=== PATIENT | female | born 1940 | race Caucasian/White ===

== ENCOUNTER 2021-01-15 08:49 | Outpatient (CLI) | payer MEDICARE, SELFPAY ==
--- NOTE | ~2021-01-15 | US_ITS ---
EXAMINATION: US renal BI EXAM DATE: 01/15/2021 09:32 INDICATION: Stage 3 Kidney Disease. CRF TECHNIQUE: Multiple grayscale and Doppler images of the kidneys were obtained (by a technologist who performed the scan) and subsequently reviewed. There is no prior study for comparison. FINDINGS: There is bilateral renal cortical thinning. Right kidney: There is normal contour and increased echogenicity. It measures 6.6 x 4.1 x 3.9 centim eters. Anechoic lesion consistent with cyst in the superior pole measuring 2 cm. There is no hydron ephrosis. Left kidney: There is normal contour and increased echogenicity. It measures 10.0 x 4.6 x 3.3 centim eters. There are no focal renal lesions identified. There is no hydronephrosis. Bladder unremarkable. IMPRESSION: 1. Echogenic cortices, medical renal disease. 2. Moderate renal atrophy. Reviewed, dictated and finalized at location B.
== END 2021-01-15 08:50 | disposition home or self-care (01) ==
LOC: ANHIMG 08:51
PROVIDERS: PCP Internal Medicine; Visit Provider Internal Medicine Nephrology
DX: N18.32 Chronic kidney disease, stage 3b (principal)
CPT/HCPCS: 76775

== ENCOUNTER → 2021-05-19 02:18 | Outpatient (CLI) | payer MEDICARE, SELFPAY ==
[2021-05-19 11:44] LABS: Influenza A QL RT-PCR Positive (Negative); Influenza B QL RT-PCR Negative (Negative); SARS-CoV-2 RNA PCR Positive
== END ==
PROVIDERS: PCP Internal Medicine; Visit Provider Internal Medicine
DX: U07.1 COVID-19 (principal)
CPT/HCPCS: 87502; C9803; U0003; U0005

== ENCOUNTER 2022-07-12 10:36 | Inpatient (IN) | payer MEDICARE, SELFPAY ==
[2022-07-12] VITALS (21 sets, daily range): BP systolic 95–180; BP diastolic 46–165; PULSE 77–120; RESP 14–20; TEMP 36.4–36.8; O2SAT 64–100; BMI 33.2
--- NOTE | ~2022-07-12 | CT_ITS ---
EXAMINATION: CT abdomen pelvis w con DATE: 07/12/2022 13:02 INDICATION: Colovesical/colovaginal fistula TECHNIQUE: Computed tomography (CT) of the abdomen and pelvis was performed with 100 mL Omnipaque-350 intravenous contrast. Automated exposure control and iterative reconstruction technique were employe d. The dose-length product was 562.11 mGy-cm. COMPARISON: 05/11/2012 FINDINGS: Mild basilar atelectasis at the right middle lobe and lingula. Heart size is normal. Atherosclerotic coronary artery calcific location. Aortic valve and mitral annular calcification. No pericardial or p leural effusion. Mild intrahepatic biliary ductal dilation with more prominent dilation of the common bile duct which measures 1.9 cm in maximal diameter. The common bile duct dilation with chronic but has increased from 1.6 cm in maximal diameter on the prior study in 2012. No obstructing stones or ma sses identified in this likely related to prior cholecystectomy with no evident gallbladder. Unchange d small spleen with irregular contours which could be either splenosis or atrophy related to prior tr auma, infarct or infection. Pancreas and bilateral adrenal glands. Bilateral mild likely age-related renal atrophy. Bilateral renal cysts, the largest a 2.2 cm exophytic cyst at the upper pole of the ri ght kidney. Mild left hydronephrosis with no evident obstructing stone or mass at the transition poin t at the ureteropelvic junction. The uterus is not identified and has likely been surgically resected . Stool-filled colovaginal fistula extending between the sigmoid colon and the vaginal cuff across th e uterine fossa. Partially decompressed bladder appears normal with no intraluminal stool or gas or e vidence defect in the wall of the dome of the bladder which abuts the fistula. There is moderate dive rticulosis with sigmoid colon predominance and without associated inflammatory stranding to suggest d iverticulitis. Normal appendix. No bowel obstruction. No free intraperitoneal gas or fluid. No pathol ogically enlarged abdominal or pelvic lymphadenopathy. Multiple sutures along the anterior abdominal wall which could be related to prior ventral hernia repair. Severe lumbar and lower thoracic spondylo sis. IMPRESSION: 1. Stool filled colon vaginal fistula. 2. Likely left UPJ obstruction with mild left hydronephrosis. 3. Chronic intra and extrahepatic biliary ductal dilation likely related to prior cholecystectomy. 4. Moderate diverticulosis. Reviewed, dictated and finalized at location A. IMPRESSION: 1. Stool filled colon vaginal fistula. 2. Likely left UPJ obstruction with mild left hydronephrosis. 3. Chronic intra and extrahepatic biliary ductal dilation likely related to gaurav or cholecystectomy. 4. Moderate diverticulosis.
--- NOTE | ~2022-07-12 | NM_ITS ---
EXAMINATION: NM lasix renal scan DATE: 07/13/2022 13:46 INDICATION: Left hydronephrosis TECHNIQUE: 9 mCi Tc-99m MAG3 was administered IV. 40 mg furosemide was administered IV immediately a fterward. The patient was scanned in the supine position. A posterior abdominal radionuclide angiogra m was obtained. A subsequent time course of static images of the kidneys, ureters, and bladder was ob tained. COMPARISON: None FINDINGS: The posterior abdominal radionuclide angiogram and sequential static images show normal size, positio n, and morphology of the kidneys. Peak renal parenchymal uptake was 8.4 min in left kidney and 3.4 mi n in right kidney (normal peak 3-5 minutes). The relative early renal uptake was 54% on the left and 45% on the right (<40% is abnormal). No abnormalities of the ureters or bladder are seen. T1/2 for clearance of activity from the left kidney and proximal collecting system was 41 minutes. T1/2 for clearance of activity from the right kidney and proximal collecting system was 28 minutes. Notes on interpretation: T1/2 <10 minutes is normal, 10-15 minutes is low grade obstruction of questi onable clinical significance, 15-20 minutes is partial obstruction that is likely clinically signific ant, >20 minutes is high grade obstruction. Note that false positives may be seen with supine positio tyrone, dehydration, severely dilated nonobstructed kidney, atonic collecting system, poor renal functi on, and chronic furosemide use. IMPRESSION: 1. Symmetric kidney function. 2. There are severely delayed contrast clearance from the left kidney with T1/2 of 41 minutes would be consistent with a high-grade obstruction. This however appears disproportionate to the relatively mild dilation of the left renal pelvis seen both on the current study as well as on the prior CT. The re is however also significant of slightly less severe delayed activity clearance from the contralate ral right kidney which is without evident hydronephrosis. This suggests that the decreased activity c learance likely due at least in part to poor renal function, dehydration, supine positioning and/or c hronic Lasix use and likely overestimates the true degree of obstruction at the left ureteropelvic ju nction. Reviewed, dictated and finalized at location A. IMPRESSION: 1. Symmetric kidney function. 2. There are severely delayed contrast clearance from the left kidney with T1/ 2 of 41 minutes would be consistent with a high-grade obstruction. This however appears disproportionate to the relatively mild dilation of the left renal pel vis seen both on the current study as well as on the prior CT. There is however also significant of slightly less severe delayed activity clearance from the c ontralateral right kidney which is without evident hydronephrosis. This suggest s that the decreased activity clearance likely due at least in part to poor juliana al function, dehydration, supine positioning and/or chronic Lasix use and likel y overestimates the true degree of obstruction at the left ureteropelvic juncti on.
[2022-07-12 12:08] LABS: Basophils Absolute Auto 0.1 K/mm3 (0.0-0.1); Basophils Percent Auto 0.4 % (0.2-1.2); Eosinophils Percent Auto 0.3 % (0-4.4); Hematocrit 49.1 % (37.0-47.0); Hemoglobin 15.1 g/dL (12.0-15.0); Immature Granulocyte Absolute 0.06 K/mm3 (0.00-0.031); Immature Granulocyte Percent A 0.4 % (0-0.5); Lymphocytes Absolute Auto 3.06 K/mm3 (0.9-3.2); Lymphocytes Percent Auto 22.6 % (18.3-44.2); Mean Corpuscular HGB Conc 30.8 g/dl (32-36); Mean Corpuscular Hemoglobin 27.7 pg (26-34); Mean Corpuscular Volume 90.1 fl (80-100); Mean Platelet Volume 10.7 fl (7.4-10.4); Monocytes Absolute Auto 0.7 K/mm3 (0.1-0.6); Monocytes Percent Auto 5.1 % (2.6-8.5); Neutrophils Absolute Auto 9.6 K/mm3 (1.3-6.7); Neutrophils Percent Auto 71.2 % (45.5-73.1); Platelet Count Result 392 k/mm3 (150-375); Red Blood Count 5.45 M/mm3 (4.2-5.4); Red Cell Distribution Width 15.8 % (11.5-14.5); White Blood Count 13.5 K/mm3 (4.5-10.0)
[2022-07-12 12:18] LABS: Appearance Urine Turbid (Clear); Bacteria Urine 4+ /hpf; Bilirubin Urine Negative (Negative); Blood Urine 3+ (Negative); Color Urine Yellow (Yellow); Glucose Urine UA 3+ mg/dL (Negative); Ketones Urine 1+ mg/dL (Negative); Leukocyte Esterase Ur 2+ LEU/UL (Negative); Need Manual Microscopic Reviewed; Nitrate Urine Negative (Negative); Protein Urine 1+ mg/dL (Negative); RBC Urine 51-100 /hpf (0-2); Specific Grav Ur 1.025 (1.001-1.035); Squamous Epithelial Cell Urine Few /hpf (Few); WBC Urine >100 /hpf; pH Urine 5.5 (5.0-9.0)
[2022-07-12 12:19] LABS: Alanine Aminotransferase 18 U/L (6-35); Alkaline Phosphatase 132 U/L (38-126); Anion Gap 9 mmol/L (8-16); Aspartate Amino Transferase 25 U/L (14-36); Bilirubin,Total 0.9 mg/dL (0.2-1.3); Blood Urea Nitrogen 27 mg/dL (7-17); Calcium 9.3 mg/dL (8.4-10.2); Carbon Dioxide 26 mmol/L (22-30); Chloride 89 mmol/L (98-107); Estimated CRCL calculation 28 ml/min; Estimated Glomerular Filt Rate 36; Glucose 577 mg/dL (65-110); Potassium 5.4 mmol/L (3.4-5.0); Sodium 124 mmol/L (137-145)
[2022-07-12 12:21] LABS: Prothrombin Time 12.8 Seconds (11.1-14.7)
[2022-07-12 12:22] LABS: Partial Thromboplastin Time 26.6 SECONDS (22.3-36.8)
[2022-07-12 12:23] LABS: Add Urine Microscopic? YES
[2022-07-12] MEDS: SODIUM CHLORIDE 0.9% IV 1,000 ML 999 ML IV CONT (12:45)
--- NOTE | 2022-07-12 14:48 | ED.GENADULT ---
HPI - General Adult General Chief complaint: [employer] Stated complaint: I have poop coming through my vagina x 2 weeks Time Seen by Provider: 07/12/22 11:10 History of Present Illness HPI narrative: Patient is an 81-year-old female who presents ER with concerns for feces in her urine and vagina. Ongoing for last 2 weeks. Has been unable to get in with a urologist so she came here for further evaluation. She reports she has been out of her medication to treat her diabetes as well. No fevers or chills or sweats. Patient has history of diverticulitis but has no abdominal pain at this time. Otherwise no additional concerns. Related Data Home Medications Medication Instructions Recorded Confirmed alprazolam 0.5 mg tablet (Xanax) 0.5 mg PO TID PRN anxiety 06/22/22 07/12/22 duloxetine 60 mg capsule,delayed 60 mg PO HS 07/12/22 07/12/22 release trazodone 50 mg tablet 50 mg PO HS PRN Insomnia 07/12/22 07/12/22 Allergies Allergy/AdvReac Type Severity Reaction Status Date / Time No Known Allergies Allergy Verified 07/12/22 11:09 Review of Systems Review of Systems: All systems reviewed & are unremarkable except as noted in HPI and below Constitutional: Constitutional: Denies chills, Denies fatigue and Denies fever(s) Cardiovascular: Cardiovascular: Denies chest pain and Denies radiating jaw, neck or arm pain Respiratory: Respiratory: Denies cough and Denies dyspnea Gastrointestinal: Gastrointestinal: Denies abdominal pain, Denies nausea and Denies vomiting Genitourinary: Genitourinary: Denies abnormal vaginal bleeding and Denies dysuria Comments: Feces and urine and vaginal discharge. [facility] Past Medical History Medical History Anxiety disorder Chronic low back pain CKD stage G3b/A3, GFR 30-44 and albumin creatinine ratio >300 mg/g Diverticulosis Essential (primary) hypertension Fibromyalgia Lumbar degenerative disc disease Mixed hyperlipidemia Screening for breast cancer Screening for osteoporosis Uncontrolled type 2 diabetes mellitus Surgical History Surgical History History of appendectomy Open appendectomy History of cholecystectomy History of exploratory laparotomy Laparotomy with cholecystectomy and at least partial splenectomy following a trauma/fall in her 30's History of hysterectomy Vaginal hysterectomy Post-splenectomy Family History Family History Sibling Family history of chronic obstructive pulmonary disease Family history of malignant neoplasm Father Family history of cardiovascular disease Mother Family history of lung cancer Social History Social History Smoking status: Never smoker Second hand tobacco smoke exposure: Yes Alcohol intake: never Substance use: never Lack of Transportation: No Lack of Food: Never True Current Housing: I Have Housing Concerned About Future Housing: No Difficulty Paying Gas/Electric Bills: No Difficulty Paying for Meds: No Currently Unemployed: No Education: High School Diploma/GED Difficulty w/ Childcare or Family Care: No Spiritual care concerns: No Exam Narrative: GENERAL: Well-appearing, well-nourished, and in no acute distress. HEAD: Normocephalic, atraumatic. ENT: Mucous membranes moist. NECK: Supple. CHEST: Clear to auscultation. No respiratory distress. HEART: Regular rate and rhythm. Normal peripheral pulses. ABDOMEN: Soft, nontender, nondistended, normal active bowel sounds. EXTREMITIES: Normal range of motion. No edema. SKIN: Warm, dry, no rash. NEURO: Alert and oriented x3. PSYCH: Normal mood and affect. Course Course Emergency Course: Subspecialty consultation of gynecology, urology, and general surgery performed. They will evaluate the patient. [place]
--- NOTE | 2022-07-12 15:31 | PM.CNGS ---
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 Currently asymptomatic. No evidence of diverticulitis or intraabdominal abscess on CT and no abdominal pain. Abdominal exam is benign. No indication for any urgent surgical intervention. Agree with Urology consultation. Patient wishes to avoid surgery if at all possible and would prefer to monitor this for now. Discussed that we would not consider surgical intervention until she is medically optimized without any other acute issues, and this could be reserved for if she becomes more symptomatic. Will continue to follow along. (2) Hydronephrosis of left kidney: Code(s): N13.30 - Unspecified hydronephrosis Status: Acute Assessment and Plan: Urology consulted. (3) Urinary tract infection: Code(s): N39.0 - Urinary tract infection, site not specified Status: Acute (4) Uncontrolled type 2 diabetes mellitus: Status: Chronic Assessment and Plan: Most recent Hgb A1C was in December and .3. Glucose on current labs is 577. Management per Hospitalist. Would want her diabetes better controlled prior to proceeding with any elective surgery, which was discussed with the patient. (5) Essential (primary) hypertension: Code(s): I10 - Essential (primary) hypertension Status: Acute (6) CKD stage G3b/A3, GFR 30-44 and albumin creatinine ratio >300 mg/g: Code(s): N18.32 - Chronic kidney disease, stage 3b Status: Chronic Plan I have discussed the patient's case and plan of care with Dr. Boston. History of Present Illness Consult details Consult date: 07/12/22 Reason for consult: other (Colovaginal fistula) Requesting physician: Jose Eduardo Lassiter MD Narrative: This is an 81-year-old woman with uncontrolled type 2 diabetes mellitus, chronic kidney disease, and hypertension, who presented to the ER with complaints of stool draining from her vagina for 2 weeks. She reports having diarrhea about a month ago after starting new medications for her diabetes. She has since been taken off her medications and is in the process of changing her primary care provider. About 2 and half weeks ago, she began to notice stool draining from her vagina. This was ongoing daily to the point that she is wearing depends due to the drainage. She reports being referred to a urologist for this issue, but has not yet set up an appointment. She began to also notice vaginal pressure and suprapubic pressure that was aggravated by voiding. Due to the persistent drainage, she decided to come into the ER for evaluation. Labs [place] [address], sodium 124, potassium 5.4, BUN 27, creatinine 1.4, glucose 577. Urinalysis showed 1+ protein, 3+ glucose, 1+ ketones, 3+ blood, 2+ leukocyte, > 100 wbc's, and 4+ bacteria. Urine culture pending. CT scan of the abdomen and pelvis with contrast showed a stool-filled colovaginal fistula, likely left UPJ obstruction with mild left hydronephrosis, and moderate diverticulosis without any evidence of diverticulitis. Our service was consulted by the ED physician for the colovaginal fistula. She is now seen in the ER. She denies any abdominal pain. She denies frequent or any recent urinary tract infections. She reports multiple previous episodes of diverticulitis, but no issues over the past 10 years. Her last colonoscopy was in 2011 that showed diverticulosis. She has had a vaginal hysterectomy many years ago. She also had an open appendectomy and an exploratory laparotomy at the age of 31 after a trauma/fall when they performed at least a cholecystectomy and partial splenectomy. Review of Systems Review of Systems: All systems reviewed & are unremarkable except as noted in HPI and below Consti
[2022-07-12] MEDS: INSULIN HUMAN REGULAR (*BKC) 100 UNITS/ML 8 UNITS IV PUSH (15:59)
--- NOTE | 2022-07-12 16:05 | PC.NURSE ---
no cultures needed per MD
[2022-07-12 16:40] LABS: Glucose Point of Care 474 mg/dl (65-105)
[2022-07-12 16:43] LABS: Glucose Point of Care 445 mg/dl (65-105)
--- NOTE | 2022-07-12 16:48 | PM.IMHP ---
H&P: HPI History of Present Illness Date/Time: 07/12/22 16:48 Chief Complaint: colovaginal fistula Narrative: patient is a 81-year-old who presented to the emergency department due to having stool type discharge from vagina for 2 weeks. She denies any prior history of any type of fistula. She does have a history of diverticulosis which she states she has never been hospitalized for this. She has also been possibly out of her diabetic medicine and her blood sugars were elevated in the emergency department. Also findings of a UPJ obstruction. Review of Systems Review of Systems: All systems reviewed & are unremarkable except as noted in HPI and below Constitutional: Constitutional: Reports no additional constitutional complaints Eyes: Eyes: Reports no additional eye complaints Cardiovascular: Cardiovascular: Reports no additional cardiovascular complaints Respiratory: Respiratory: Reports no additional respiratory complaints Gastrointestinal: Gastrointestinal: Reports no additional gastrointestinal complaints Genitourinary: Genitourinary: Reports as per HPI Psychiatric: Psychiatric: Reports no additional psychiatric complaints Hematologic/Lymphatic: Hematologic/Lymphatic: Reports no additional hematologic/lymphatic complaints [facility] Past Medical History Medical History Anxiety disorder Chronic low back pain CKD stage G3b/A3, GFR 30-44 and albumin creatinine ratio >300 mg/g Diverticulosis Essential (primary) hypertension Fibromyalgia Lumbar degenerative disc disease Mixed hyperlipidemia Screening for breast cancer Screening for osteoporosis Uncontrolled type 2 diabetes mellitus Surgical History Surgical History History of appendectomy Open appendectomy History of cholecystectomy History of exploratory laparotomy Laparotomy with cholecystectomy and at least partial splenectomy following a trauma/fall in her 30's History of hysterectomy Vaginal hysterectomy Post-splenectomy Family History Family History Sibling Family history of chronic obstructive pulmonary disease Family history of malignant neoplasm Father Family history of cardiovascular disease Mother Family history of lung cancer Social History Social History Smoking status: Never smoker Second hand tobacco smoke exposure: No Alcohol intake: current Lack of Transportation: No Lack of Food: Never True Current Housing: I Have Housing Concerned About Future Housing: No Difficulty Paying Gas/Electric Bills: No Difficulty Paying for Meds: No Currently Unemployed: No Education: High School Diploma/GED Difficulty w/ Childcare or Family Care: No Meds Home Medications and Allergies Home Medications Medication Instructions Recorded Confirmed Type omega3 1,000 ky-fcv-loy-other cap PO 02/02/19 05/24/22 History [id number] oil 1,400 mg capsule,delay rel albuterol sulfate 90 mcg/actuation 2 inh inhalation Q6-8H PRN 07/31/21 05/24/22 Rx aerosol inhaler (Ventolin HFA) shortness of breath or wheezing #8.5 grams trazodone 50 mg tablet See Rx Instructions .Route 11/16/21 05/24/22 Rx .COMPLEX #30 tabs duloxetine 60 mg capsule,delayed See Rx Instructions .Route 12/31/21 05/24/22 Rx release .COMPLEX #90 ea glimepiride 2 mg tablet 2 mg PO BID #180 tabs 01/21/22 05/24/22 Rx dapagliflozin 10 mg tablet 10 mg PO DAILY #30 tabs 05/24/22 05/24/22 Rx (Farxiga) pioglitazone 30 mg tablet (Actos) 30 mg PO DAILY #30 tabs 05/24/22 05/24/22 Rx valsartan 160 mg tablet 160 mg PO DAILY #90 tabs 05/24/22 05/24/22 Rx alprazolam 0.5 mg tablet (Xanax) 0.5 mg PO TID PRN anxiety 06/22/22 History tramadol 50 mg tablet 50 mg PO Q6H PRN pain #110 tabs 06/22/22 Rx Allergies Allergy/A
--- NOTE | 2022-07-12 17:41 | ADMGEN ---
This patient, Kathryn Rosario, was admitted to IMU Room 203-01. Patient/family oriented to hospital policies and general routines including ID bracelet, bed and alarms, visiting hours, pain management, procedures, bathroom and other care routines, personal items, smoking policy, room service/diet, and visiting hours. Information on how to activate the Rapid Response Team has been discussed. Patient/Family are encouraged to report perceived risks to care and to ask questions if they do not understand what they are told or what they should do.
[2022-07-12 17:54] LABS: Glucose Point of Care 310 mg/dl (65-105)
[2022-07-12] MEDS: SODIUM CHLORIDE 0.9% IV 1,000 ML 125 ML IV CONT (18:15)
--- NOTE | 2022-07-12 18:33 | PM.IMHP ---
H&P: HPI History of Present Illness Date/Time: 07/12/22 18:33 Chief Complaint: Stool coming through her vagina Narrative: This is an 81-year-old female patient who presented to the emergency room for feces in her urine and vagina. This is been going on for the last 2 weeks. The patient has been unable to get to the urologist therefore she came to the emergency room for further evaluation. Patient is in between doctors at this time and she ran out of her medications to treat her diabetes. She has no fever chills. She has a history of diverticulitis and diverticulosis but no abdominal pain at this time. Her white count is 13.5. H&H is 15.1 and 49.1. Her sodium is low at 124. Potassium 5.4. Chloride 89. Her BUN is 27 creatinine 1.4 which is her baseline. Her GFR is 36. Her blood sugar initially was 577 and it is now 352. Her last known A1c was 10.3 on 01/18/2022. Her urine is turbid and appears to be infected. Urology was consulted, tiny was consulted and surgery was consulted. Abdominal pelvis CT was read as . 1. Stool filled colon vaginal fistula. 2. Likely left UPJ obstruction with mild left hydronephrosis. 3. Chronic intra and extrahepatic biliary ductal dilation likely related to prior cholecystectomy. 4. Moderate diverticulosis .the patient was given IV fluids, insulin IV, and Rocephin the patient is being admitted to observation status on the date of service of 07/12/2022 Review of Systems Review of Systems: All systems reviewed & are unremarkable except as noted in HPI and below Constitutional: Constitutional: Reports as per HPI and Reports no additional constitutional complaints Eyes: Eyes: Reports as per HPI and Reports no additional eye complaints ENT: Reports system reviewed and no additional complaints, except as documented and Reports Normal hearing present Cardiovascular: Cardiovascular: Reports no additional cardiovascular complaints Respiratory: Respiratory: Reports no additional respiratory complaints and Reports no additional respiratory complaints Gastrointestinal: Gastrointestinal: Reports as per HPI and Reports no additional gastrointestinal complaints Musculoskeletal: Musculoskeletal: Reports no additional musculoskeletal complaints Integumentary/Breasts: Skin/Breast: Reports system reviewed and no additional complaints, except as docu and Reports as per HPI Neurologic: Reports system reviewed and no additional complaints, except as documented, Reports as per HPI and Reports Normal hearing present Psychiatric: Psychiatric: Reports no additional psychiatric complaints and Reports as per HPI Endocrine: Endocrine: Reports no additional endocrine complaints Hematologic/Lymphatic: Hematologic/Lymphatic: Reports no additional hematologic/lymphatic complaints Allergic/Immunologic: Allergic/Immunologic: Reports no additional allergic/immunologic complaints [facility] Past Medical History Medical History (Updated 07/12/22 @ 22:24 by Safia Black NP) Anxiety disorder Benign hypertension with CKD (chronic kidney disease) stage III Chronic low back pain CKD stage G3b/A3, GFR 30-44 and albumin creatinine ratio >300 mg/g Diverticulosis DM2 (diabetes mellitus, type 2) Essential (primary) hypertension Fibromyalgia Lumbar degenerative disc disease Mixed hyperlipidemia Screening for breast cancer Screening for osteoporosis Uncontrolled type 2 diabetes mellitus Surgical History Surgical History (Updated 07/12/22 @ 22:17 by Safia Black NP) H/O cataract extraction History of appendectomy Open appendectomy History of carpal tunnel release On the right History of cholecystectomy History of exploratory laparotomy Laparotomy with cholecystectomy and at least partial splenectomy following a trauma/fall in her 30's History of hysterectomy Vaginal hysterectomy History of resection of liver History of total knee arthroplasty On the right Post-splenectomy Family History Family History (Reviewe
[2022-07-12 20:32] LABS: Glucose Point of Care 352 mg/dl (65-105)
[2022-07-12] MEDS: INSULIN ASPART (*BKC) 100 UNITS/ML 6 UNITS SUB-Q (21:00)
[2022-07-12] MEDS: traZODone HCL 50 MG TABLET PO (23:04)
[2022-07-12] MEDS: DULoxetine HCL 60 MG CAPSULE.DR PO (23:04)
[2022-07-13] VITALS (15 sets, daily range): BP systolic 87–142; BP diastolic 48–73; PULSE 85–115; RESP 18–93; TEMP 36.4–36.8; O2SAT 91–99; BMI 33.1
[2022-07-13] MEDS: ALPRAZolam (*CRX) 0.5 MG TABLET PO (02:24)
[2022-07-13] MEDS: SODIUM CHLORIDE 0.9% IV 1,000 ML 125 ML IV CONT ×3 (03:33→20:59)
[2022-07-13 04:56] LABS: Basophils Absolute Auto 0.1 K/mm3 (0.0-0.1); Basophils Percent Auto 0.5 % (0.2-1.2); Eosinophils Absolute Auto 0.1 K/mm3 (0-0.3); Eosinophils Percent Auto 1.2 % (0-4.4); Hematocrit 43.9 % (37.0-47.0); Hemoglobin 13.5 g/dL (12.0-15.0); Immature Granulocyte Absolute 0.02 K/mm3 (0.00-0.031); Immature Granulocyte Percent A 0.2 % (0-0.5); Lymphocytes Absolute Auto 3.71 K/mm3 (0.9-3.2); Lymphocytes Percent Auto 40.2 % (18.3-44.2); Mean Corpuscular HGB Conc 30.8 g/dl (32-36); Mean Corpuscular Hemoglobin 27.7 pg (26-34); Mean Corpuscular Volume 90.1 fl (80-100); Mean Platelet Volume 10.6 fl (7.4-10.4); Monocytes Absolute Auto 0.9 K/mm3 (0.1-0.6); Monocytes Percent Auto 9.5 % (2.6-8.5); Neutrophils Absolute Auto 4.5 K/mm3 (1.3-6.7); Neutrophils Percent Auto 48.4 % (45.5-73.1); Platelet Count Result 355 k/mm3 (150-375); Red Blood Count 4.87 M/mm3 (4.2-5.4); White Blood Count 9.2 K/mm3 (4.5-10.0)
[2022-07-13 05:04] LABS: Lactic Acid Reflex 1.5 mmol/L (0.7-2.0)
[2022-07-13 05:07] LABS: Alanine Aminotransferase 14 U/L (6-35); Albumin Level 3.3 g/dL (3.5-5.1); Alkaline Phosphatase 88 U/L (38-126); Anion Gap 8 mmol/L (8-16); Aspartate Amino Transferase 22 U/L (14-36); Bilirubin,Total 0.7 mg/dL (0.2-1.3); Blood Urea Nitrogen 26 mg/dL (7-17); Calcium 8.7 mg/dL (8.4-10.2); Carbon Dioxide 24 mmol/L (22-30); Chloride 97 mmol/L (98-107); Estimated CRCL calculation 28 ml/min; Estimated Glomerular Filt Rate 36; Glucose 389 mg/dL (65-110); Magnesium 1.8 mg/dL (1.6-2.3); Potassium 4.5 mmol/L (3.4-5.0); Sodium 129 mmol/L (137-145)
[2022-07-13 05:09] LABS: Hemoglobin A1C 13.7 % (<5.7)
[2022-07-13 08:34] LABS: Glucose Point of Care 411 mg/dl (65-105)
--- NOTE | 2022-07-13 09:19 | PM.IMPN ---
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 Do Per gynecology note?Discussed with her that this condition will need to be referred to a urogynecologist/ colorectal surgeon which the referral can take place outpatient once her medical conditions are stabilized. My office will send the referral. Blood and urine cultures were sent Patient is currently on Rocephin. Monitor CBC vital signs and cultures. Tailor antibiotics according to cultures and sensitivities. Abdominal pelvis CT was read as the following. 1.Stool filled colon vaginal fistula. 2. Likely left UPJ obstruction with mild left hydronephrosis. 3. Chronic intra and extrahepatic biliary ductal dilation likely related to prior cholecystectomy. 4. Moderate diverticulosis. Surgery has been consulted and the following was noted per surgical note CT evidence of colovaginal fistula with stool draining vaginally for 2 weeks. Currently asymptomatic. No evidence of diverticulitis or intraabdominal abscess on CT and no abdominal pain. Abdominal exam is benign. No indication for any urgent surgical intervention. Agree with Urology consultation.? Patient wishes to avoid surgery if at all possible and would prefer to monitor this for now. Discussed that we would not consider surgical intervention until she is medically optimized without any other acute issues, and this could be reserved for if she becomes more symptomatic. Will continue to follow along. White count is 13.5. (2) Acute UTI: Code(s): N39.0 - Urinary tract infection, site not specified Status: Acute Assessment and Plan: Rocephin has been started Blood and urine cultures are pending Tailor antibiotics according to cultures and sensitivities. Continue IV fluids as ordered (3) DM2 (diabetes mellitus, type 2): Code(s): E11.9 - Type 2 diabetes mellitus without complications Status: Acute Assessment and Plan: Accu-Cheks AC and HS with sliding scale and and hypoglycemic protocol Check A1c Noted to be hyperglycemic room 577 on admission The patient stated she was on Farxiga but it made her feel ill so she stopped taking it. Basal bolus insulin S started A1c came back at 13.7 (4) Hydronephrosis of left kidney: Code(s): N13.30 - Unspecified hydronephrosis Status: Acute Assessment and Plan: Urology has been consulted (5) CKD stage G3b/A3, GFR 30-44 and albumin creatinine ratio >300 mg/g: Code(s): N18.32 - Chronic kidney disease, stage 3b Status: Chronic Assessment and Plan: Continue to monitor Currently at her baseline Creatinine is 1.4 GFR is 36. (6) Mixed hyperlipidemia: Code(s): E78.2 - Mixed hyperlipidemia Status: Acute Assessment and Plan: Continue heart healthy diet (7) Fibromyalgia: Code(s): M79.7 - Fibromyalgia Status: Acute Assessment and Plan: Continue with tramadol Continue with duloxetine Continue trazodone (8) Essential (primary) hypertension: Code(s): I10 - Essential (primary) hypertension Status: Acute Assessment and Plan: Continue with valsartan (9) Anxiety disorder: Code(s): F41.9 - Anxiety disorder, unspecified Status: Acute Assessment and Plan: Continue with alprazolam Plan Hyponatremia sodium level of 124 on admission. Improving with IV hydration likely hypovolemia related CKD stage 3 creatinine level at baseline. Continue to monitor Subjective Date/time seen: 07/13/22 09:19 Interval history: no overnight events, no sob, chest pain. no abdoinal pain, nausea, vomiting. Review of Systems Review of Systems: All systems reviewed & are unremarkable except as noted in HPI and below Exam Narrative: GENERAL: Well-appearing, well-nourished, and in n
[2022-07-13] MEDS: INSULIN ASPART (*BKC) 100 UNITS/ML SUB-Q ×2 (10:00→12:59)
[2022-07-13] MEDS: INSULIN GLARGINE (*BKC) 100 UNITS/ML 20 UNITS SUB-Q (10:01)
[2022-07-13] MEDS: VALSARTAN 160 MG TABLET PO (10:02)
--- NOTE | 2022-07-13 12:01 | PM.PNGS ---
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 No abdominal pain, abdominal exam benign. No indication for urgent surgical intervention at this time. [employer] FEEDER consulted and recommend urogynecologist/colorectal surgeon referral. Agree that this can be done as an outpatient once her acute issues are treated. (2) Hydronephrosis of left kidney: Code(s): N13.30 - Unspecified hydronephrosis Status: Acute Assessment and Plan: Urology consulted (3) Urinary tract infection: Code(s): N39.0 - Urinary tract infection, site not specified Status: Acute Assessment and Plan: Continue antibiotics, urine culture pending (4) Uncontrolled type 2 diabetes mellitus: Status: Chronic (5) CKD stage G3b/A3, GFR 30-44 and albumin creatinine ratio >300 mg/g: Code(s): N18.32 - Chronic kidney disease, stage 3b Status: Chronic Plan I have discussed the patient's case and plan of care with Dr. Boston. Subjective Subjective Date/Time Seen: 07/13/22 10:01 Patient reports: no new complaints and feels better Interval history: Patient seen in the IMU this morning. She is feeling well. Denies any abdominal pain or pressure. She had some vaginal drainage overnight but not much this morning. She has some mild lower back pain that she attributes to being on the ER stretcher all day yesterday and has improved since being admitted. No other complaints at this time. Review of Systems Review of Systems: All systems reviewed & are unremarkable except as noted in HPI and below Exam Const: General: comfortable and no acute distress Orientation/consciousness: patient oriented x3 GI: Inspection: non-distended GI Palp: Yes Soft to palpation, No Tenderness to palpation present (GI), No Guarding due to palpation present (GI) and No Rebound tenderness present Auscultation: normal bowel sounds Psych: Mental Status: mental status grossly normal Insight: Good insight present (Psych) Objective Data Vital Signs Vital Signs: Vital Signs - 24 hr 07/12/22 12:05 07/12/22 12:09 07/12/22 12:20 Temperature Pulse Rate 102 H Respiratory Rate Blood Pressure 133/86 Pulse Oximetry 100 64 L 88 L Oxygen Delivery 07/12/22 12:31 07/12/22 14:15 07/12/22 14:47 Temperature Pulse Rate 99 Respiratory Rate 14 Blood Pressure 126/84 Pulse Oximetry 97 94 98 Oxygen Delivery 07/12/22 15:00 07/12/22 16:07 07/12/22 16:24 Temperature Pulse Rate Respiratory Rate Blood Pressure Pulse Oximetry 89 L 81 L 94 Oxygen Delivery 07/12/22 16:30 07/12/22 16:47 07/12/22 18:00 Temperature Pulse Rate 77 111 H Respiratory Rate 17 Blood Pressure 132/78 Pulse Oximetry 96 100 Oxygen Delivery 07/12/22 18:00 07/12/22 20:00 07/12/22 21:10 Temperature 97.6 F Pulse Rate 110 H Respiratory Rate 20 Blood Pressure 95/46 L 97/64 L Pulse Oximetry 97 Oxygen Delivery Room Air 07/12/22 20:00 07/12/22 23:15 07/12/22 23:54 Temperature 97.8 F Pulse Rate 97 Respiratory Rate 20 Blood Pressure 134/96 H Pulse Oximetry 98 Oxygen Delivery Room Air Room Air 07/12/22 20:00 07/12/22 22:00 07/13/22 00:00 Temperature Pulse Rate 120 H 103 H 110 H Respiratory Rate Blood Pressure Pulse Oximetry Oxygen Delivery 07/13/22 02:00 07/13/22 03:37 07/13/22 04:00 Temperature 97.8 F Pulse Rate 97 95 Respiratory Rate 18 Blood Pressure 142/71 H Pulse Oximetry 99 Oxygen Delivery Room Air 07/13/22 04:00 07/13/22 06:00 07/13/22 08:00 Temperature 98.2 F Pulse Rate 90 90 85 Respiratory Rate 18 Blood Pressure 105/55 L Pulse Oximetry 98 Oxygen Delivery 07/13/22 08:00 07/13/22 10:00 07/13/22 08:00 Temperature Pulse Rate 106 H 106 H
[2022-07-13 12:32] LABS: Glucose Point of Care 493 mg/dl (65-105)
[2022-07-13 12:39] LABS: Glucose Point of Care > 500 mg/dl (65-105)
--- NOTE | 2022-07-13 12:50 | PM.GYNPNOP ---
CREDIT COLLECTIONS REP - A/P Time Spent With Patient Time: Total time spent is greater than 50% in coordination of care (as documented) at patient's floor/unit and/or counseling patient: CREDIT COLLECTIONS REP- PN:Josh Post-Op Subjective Date/time seen: 07/13/22 12:50 Interval history: no overnight events, no sob, chest pain. no abdoinal pain, nausea, vomiting. CREDIT COLLECTIONS REP - PN: Obj Data Vital Signs Vital Signs: Vital Signs - 24 hr 07/12/22 14:15 07/12/22 14:47 07/12/22 15:00 Temperature Pulse Rate 99 Respiratory Rate 14 Blood Pressure 126/84 Pulse Oximetry 94 98 89 L Oxygen Delivery 07/12/22 16:07 07/12/22 16:24 07/12/22 16:30 Temperature Pulse Rate Respiratory Rate Blood Pressure Pulse Oximetry 81 L 94 96 Oxygen Delivery 07/12/22 16:47 07/12/22 18:00 07/12/22 18:00 Temperature Pulse Rate 77 111 H Respiratory Rate 17 Blood Pressure 132/78 Pulse Oximetry 100 Oxygen Delivery Room Air 07/12/22 20:00 07/12/22 21:10 07/12/22 20:00 Temperature 97.6 F Pulse Rate 110 H Respiratory Rate 20 Blood Pressure 95/46 L 97/64 L Pulse Oximetry 97 Oxygen Delivery Room Air 07/12/22 23:15 07/12/22 23:54 07/12/22 20:00 Temperature 97.8 F Pulse Rate 97 120 H Respiratory Rate 20 Blood Pressure 134/96 H Pulse Oximetry 98 Oxygen Delivery Room Air 07/12/22 22:00 07/13/22 00:00 07/13/22 02:00 Temperature Pulse Rate 103 H 110 H 97 Respiratory Rate Blood Pressure Pulse Oximetry Oxygen Delivery 07/13/22 03:37 07/13/22 04:00 07/13/22 04:00 Temperature 97.8 F Pulse Rate 95 90 Respiratory Rate 18 Blood Pressure 142/71 H Pulse Oximetry 99 Oxygen Delivery Room Air 07/13/22 06:00 07/13/22 08:00 07/13/22 08:00 Temperature 98.2 F Pulse Rate 90 85 Respiratory Rate 18 Blood Pressure 105/55 L Pulse Oximetry 98 Oxygen Delivery Room Air 07/13/22 10:00 07/13/22 08:00 07/13/22 12:00 Temperature 98.2 F Pulse Rate 106 H 106 H 103 H Respiratory Rate 18 Blood Pressure 116/70 Pulse Oximetry 98 Oxygen Delivery Intake/Output Intake/Output: Intake & Output 07/10/22 07/11/22 07/12/22 07/13/22 23:59 23:59 23:59 23:59 Intake Total 1050 1810 Output Total 100 800 Balance 950 1010 Meds/Results Medications: Active Medications Generic Name Dose Route Start Last Admin Trade Name Freq PRN Reason Stop Dose Admin Acetaminophen 650 mg 07/12/22 15:56 Acetaminophen 325 Mg Tablet PO Q4H PRN Mild Pain (1-3) or Fever Albuterol 2 puff 07/12/22 22:25 Albuterol Sulfate (*Sp) Aerosol 1 Puff INHALATION Q6-8H PRN shortness of breath or wheezing Alprazolam 0.5 mg 07/12/22 22:25 07/13/22 02:24 Alprazolam (*Crx) 0.5 Mg Tablet PO 0.5 mg TID PRN Administration anxiety Dextrose 12.5 gm 07/12/22 22:31 Dextrose 50% 25 Gm/50 Ml Syringe IV PUSH PRN PRN Hypoglycemia Protocol Duloxetine HCl 60 mg 07/12/22 22:30 07/12/22 23:04 Duloxetine Hcl 60 Mg Capsule.Dr PO 60 mg HS PEPPER Administration Furosemide 40 mg 07/13/22 12:50 Furosemide Inj 40 Mg/4 Ml Vial IV PUSH 07/13/22 12:51 ONCE ONE Glucagon 1 mg 07/12/22 22:31 Glucagon For Inj 1 Mg Vial IM PRN PRN Hypoglycemia Protocol Glucose 15 gm 07/12/22 22:31 Glucose Oral Gel 15 Gm Of Glucse In 37.5 Gm Tube PO PRN PRN Hypoglycemia Protocol Sodium Chloride 1,000 mls @ 125 mls/hr 07/12/22 16:00 07/13/22 03:33 Normal Saline Iv IV CONT 125 mls/hr .Q8H PEPPER Administration Ceftriaxone Sodium 1 gm in 50 mls @ 100 mls/hr 07/13/22 16:00 Rocephin 1 Gm/Ns 50 Ml IVPB Q24H PEPPER Dextrose 1,000 mls @ 100 mls/hr 07/12/22 22:31 Dextrose 5% 1,000 Ml IVPB PRN PRN Hypoglycemia Protocol Insulin Aspart 7 units 07/13/22 12:00 Insulin Aspart (*Bkc) 100 Units/Ml 0.083 units/kg (7 units) SUB-Q TIDWM [facility] Insulin Aspart 2 - 5 u
[2022-07-13] MEDS: INSULIN ASPART (*BKC) 100 UNITS/ML 20 UNITS SUB-Q (12:51)
[2022-07-13] MEDS: INSULIN ASPART (*BKC) 100 UNITS/ML 7 UNITS SUB-Q (12:52)
--- NOTE | 2022-07-13 12:53 | WPDURCON ---
Assessment and Plan Assessment and plan (1) Hydronephrosis with ureteropelvic junction (UPJ) obstruction: Code(s): Q62.11 - Congenital occlusion of ureteropelvic junction Status: Acute Assessment and Plan: Patient appears to be asymptomatic, renal lasix scan ordered to further evaluate. Creatinine is elevated at 1.40. 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 (3) Acute UTI: Code(s): N39.0 - Urinary tract infection, site not specified Status: Acute Assessment and Plan: UA is positive for infection, but with fecal matter in the urine and vagina this is not suprising. I assume the urine culture is contaminated. Urology Consult Note HPI Date Seen: 07/13/22 Time Seen: 09:00 Requesting Physician: Hiren Frank MD Primary Care Provider: Annabelle Manuel MD Consult Narrative Reason for consult: left upj obstruction Narrative: Kathryn Rosario is a 81 year old female who presented to the ER yesterday for c/o feces in her urine and vagina that began weeks ago. She has been unable to reach a urologist and came to the ER for evaluation. Her WBC is currently 13.5, 9.2 and creatinine is 1.40. UA is positive for infection, blood and urine cultures are positive, CT scan shows 1. Stool filled colon vaginal fistula. 2. Likely left UPJ obstruction with mild left hydronephrosis. 3. Chronic intra and extrahepatic biliary ductal dilation likely related to prior cholecystectomy. 4. Moderate diverticulosis. She denies left sided flank pain, dysuria, hematuria, frequency, urgency or difficultly with urination. Review of Systems Cardiovascular: Cardiovascular: Denies chest pain Respiratory: Respiratory: Reports no additional respiratory complaints Gastrointestinal: Gastrointestinal: Reports abdominal pain, Denies nausea and Denies vomiting Genitourinary: Genitourinary: Denies nocturia, Denies dysuria, Denies pelvic pain, Denies flank pain, Denies urinary incontinence, Denies urinary hesitancy, Denies urinary urgency, Reports vaginal discharge and Reports other (feces noted in the urine and vagina) PMFSH Past Medical History Medical History Anxiety disorder Benign hypertension with CKD (chronic kidney disease) stage III Chronic low back pain CKD stage G3b/A3, GFR 30-44 and albumin creatinine ratio >300 mg/g Diverticulosis DM2 (diabetes mellitus, type 2) Essential (primary) hypertension Fibromyalgia Lumbar degenerative disc disease Mixed hyperlipidemia Screening for breast cancer Screening for osteoporosis Uncontrolled type 2 diabetes mellitus Surgical History Surgical History H/O cataract extraction History of appendectomy Open appendectomy History of carpal tunnel release On the right History of cholecystectomy History of exploratory laparotomy Laparotomy with cholecystectomy and 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 Code status DNR Smoking status: Never smoker Second hand to
--- NOTE | 2022-07-13 12:55 | PM.GYNPNOP ---
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 [facility] will contact her with further instructions. Discussed with her that if she has any increasing vaginal symptoms once she is released then would recommend she go to the emergency department at [facility] where she can not get a sooner evaluation if they feel it is needed by a colorectal surgeon there. I will sign off on her care. Time Spent With Patient Time: Total time spent is greater than 50% in coordination of care (as documented) at patient's floor/unit and/or counseling patient: Time with patient: less than 15 minutes BATTERY RECHARGER- PN:Subj Post-Op Subjective Date/time seen: 07/13/22 12:55 Interval history: She denies any change in symptoms. No pelvic pain. BATTERY RECHARGER - PN: Obj Data Vital Signs Vital Signs: Vital Signs - 24 hr 07/12/22 14:15 07/12/22 14:47 07/12/22 15:00 Temperature Pulse Rate 99 Respiratory Rate 14 Blood Pressure 126/84 Pulse Oximetry 94 98 89 L Oxygen Delivery 07/12/22 16:07 07/12/22 16:24 07/12/22 16:30 Temperature Pulse Rate Respiratory Rate Blood Pressure Pulse Oximetry 81 L 94 96 Oxygen Delivery 07/12/22 16:47 07/12/22 18:00 07/12/22 18:00 Temperature Pulse Rate 77 111 H Respiratory Rate 17 Blood Pressure 132/78 Pulse Oximetry 100 Oxygen Delivery Room Air 07/12/22 20:00 07/12/22 21:10 07/12/22 20:00 Temperature 97.6 F Pulse Rate 110 H Respiratory Rate 20 Blood Pressure 95/46 L 97/64 L Pulse Oximetry 97 Oxygen Delivery Room Air 07/12/22 23:15 07/12/22 23:54 07/12/22 20:00 Temperature 97.8 F Pulse Rate 97 120 H Respiratory Rate 20 Blood Pressure 134/96 H Pulse Oximetry 98 Oxygen Delivery Room Air 07/12/22 22:00 07/13/22 00:00 07/13/22 02:00 Temperature Pulse Rate 103 H 110 H 97 Respiratory Rate Blood Pressure Pulse Oximetry Oxygen Delivery 07/13/22 03:37 07/13/22 04:00 07/13/22 04:00 Temperature 97.8 F Pulse Rate 95 90 Respiratory Rate 18 Blood Pressure 142/71 H Pulse Oximetry 99 Oxygen Delivery Room Air 07/13/22 06:00 07/13/22 08:00 07/13/22 08:00 Temperature 98.2 F Pulse Rate 90 85 Respiratory Rate 18 Blood Pressure 105/55 L Pulse Oximetry 98 Oxygen Delivery Room Air 07/13/22 10:00 07/13/22 08:00 07/13/22 12:00 Temperature 98.2 F Pulse Rate 106 H 106 H 103 H Respiratory Rate 18 Blood Pressure 116/70 Pulse Oximetry 98 Oxygen Delivery Intake/Output Intake/Output: Intake & Output 07/10/22 07/11/22 07/12/22 07/13/22 23:59 23:59 23:59 23:59 Intake Total 1050 1810 Output Total 100 800 Balance 950 1010 Meds/Results Medications: Active Medications Generic Name Dose Route Start Last Admin Trade Name Freq PRN Reason Stop Dose Admin Acetaminophen 650 mg 07/12/22 15:56 Acetaminophen 325 Mg Tablet PO Q4H PRN Mild Pain (1-3) or Fever Albuterol 2 puff 07/12/22 22:25 Albuterol Sulfate (*Sp) Aerosol 1 Puff INHALATION Q6-8H PRN shortness of breath or wheezing Alprazolam 0.5 mg 07/12/22 22:25 07/13/22 02:24 Alprazolam (*Crx) 0.5 Mg Tablet PO 0.5 mg TID PRN Administration anxiety Dextrose 12.5 gm 07/12/22 22:31 Dextrose 50% 25 Gm/50 Ml Syringe IV PUSH PRN PRN Hypoglycemia Protocol Duloxetine HCl 60 mg 07/12/22 22:30 07/12/22 23:04 Duloxetine Hcl 60 Mg Capsule.Dr PO 60 mg HS PEPPER Administration Glucagon 1 mg 07/12/22 22:31 Glucagon For Inj 1 Mg Vial IM PRN PRN Hypoglycemia Protocol Glucose 15 gm 07/12/22 22:31 Glucose Oral Gel 15 Gm Of Glucse In 37.5 Gm Tube PO PRN PRN Hypoglycemia Pro
[2022-07-13] MEDS: FUROSEMIDE INJ 40 MG/4 ML VIAL IV PUSH (13:04)
[2022-07-13 16:47] LABS: Glucose Point of Care 75 mg/dl (65-105)
[2022-07-13 20:15] LABS: Glucose Point of Care 256 mg/dl (65-105)
[2022-07-13] MEDS: DULoxetine HCL 60 MG CAPSULE.DR PO (20:58)
[2022-07-13] MEDS: traZODone HCL 50 MG TABLET PO (22:21)
[2022-07-13] MEDS: ACETAMINOPHEN 325 MG TABLET 650 MG PO (22:21)
[2022-07-14] VITALS (13 sets, daily range): BP systolic 107–131; BP diastolic 64–84; PULSE 80–107; RESP 16–20; TEMP 36.4–37; O2SAT 93–100
[2022-07-14 05:28] LABS: Alanine Aminotransferase 14 U/L (6-35); Albumin Level 2.7 g/dL (3.5-5.1); Alkaline Phosphatase 63 U/L (38-126); Anion Gap 3 mmol/L (8-16); Aspartate Amino Transferase 26 U/L (14-36); Bilirubin,Total 0.5 mg/dL (0.2-1.3); Blood Urea Nitrogen 26 mg/dL (7-17); Calcium 7.9 mg/dL (8.4-10.2); Carbon Dioxide 25 mmol/L (22-30); Chloride 106 mmol/L (98-107); Estimated CRCL calculation 26 ml/min; Estimated Glomerular Filt Rate 33; Glucose 259 mg/dL (65-110); Magnesium 1.7 mg/dL (1.6-2.3); Potassium 3.9 mmol/L (3.4-5.0); Sodium 134 mmol/L (137-145)
[2022-07-14 05:37] LABS: Basophils Percent Auto 0.3 % (0.2-1.2); Eosinophils Absolute Auto 0.1 K/mm3 (0-0.3); Eosinophils Percent Auto 1.2 % (0-4.4); Hematocrit 38.3 % (37.0-47.0); Immature Granulocyte Absolute 0.03 K/mm3 (0.00-0.031); Immature Granulocyte Percent A 0.3 % (0-0.5); Lymphocytes Absolute Auto 3.39 K/mm3 (0.9-3.2); Lymphocytes Percent Auto 33.9 % (18.3-44.2); Mean Corpuscular HGB Conc 31.3 g/dl (32-36); Mean Corpuscular Hemoglobin 28.2 pg (26-34); Mean Corpuscular Volume 89.9 fl (80-100); Mean Platelet Volume 10.9 fl (7.4-10.4); Monocytes Percent Auto 9.6 % (2.6-8.5); Neutrophils Absolute Auto 5.5 K/mm3 (1.3-6.7); Neutrophils Percent Auto 54.7 % (45.5-73.1); Platelet Count Result 316 k/mm3 (150-375); Red Blood Count 4.26 M/mm3 (4.2-5.4); Red Cell Distribution Width 16.1 % (11.5-14.5)
[2022-07-14] MEDS: INSULIN GLARGINE (*BKC) 100 UNITS/ML 20 UNITS SUB-Q (08:11)
[2022-07-14] MEDS: INSULIN ASPART (*BKC) 100 UNITS/ML SUB-Q ×3 (08:12→16:47)
[2022-07-14] MEDS: INSULIN ASPART (*BKC) 100 UNITS/ML 7 UNITS SUB-Q ×3 (08:12→16:47)
[2022-07-14] MEDS: VALSARTAN 160 MG TABLET PO (08:13)
[2022-07-14 08:23] LABS: Glucose Point of Care 250 mg/dl (65-105)
[2022-07-14 12:06] LABS: Glucose Point of Care 325 mg/dl (65-105)
[2022-07-14] MEDS: SODIUM CHLORIDE 0.9% IV 1,000 ML 125 ML IV CONT (12:10)
--- NOTE | 2022-07-14 14:57 | PM.PNGS ---
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 No abdominal pain, abdominal exam benign. Okay from our standpoint to discharge when okay with other services. Will sign off at this time. Patient wishes to be referred to [place] for further treatment, which can be done as an outpatient with urogyn/colorectal. (2) Hydronephrosis of left kidney: Code(s): N13.30 - Unspecified hydronephrosis Status: Acute (3) Urinary tract infection: Code(s): N39.0 - Urinary tract infection, site not specified Status: Acute Assessment and Plan: Continue antibiotics per primary service. Discussed s/s of UTI to monitor for in the future while waiting for surgery (4) Uncontrolled type 2 diabetes mellitus: Status: Chronic (5) CKD stage G3b/A3, GFR 30-44 and albumin creatinine ratio >300 mg/g: Code(s): N18.32 - Chronic kidney disease, stage 3b Status: Chronic Plan I have discussed the patient's case and plan of care with Dr. Boston. Subjective Subjective Date/Time Seen: 07/14/22 14:57 Patient reports: no new complaints and afebrile Interval history: Patient doing well. No acute events overnight or new complaints. Still with minimal vaginal discharge that appears to be stool-like. Denies abdominal pain or any other complaints at this time. Review of Systems Review of Systems: ROS unchanged Exam Const: General: comfortable and no acute distress Orientation/consciousness: patient oriented x3 GI: Inspection: non-distended GI Palp: Yes Soft to palpation, No Tenderness to palpation present (GI), No Guarding due to palpation present (GI) and No Rebound tenderness present Auscultation: normal bowel sounds Objective Data Vital Signs Vital Signs: Vital Signs - 24 hr 07/13/22 16:00 07/13/22 16:00 07/13/22 18:00 Temperature 98.2 F Pulse Rate 109 H 106 H Respiratory Rate 18 Blood Pressure 87/48 L Pulse Oximetry 97 Oxygen Delivery Room Air 07/13/22 16:00 07/13/22 19:41 07/13/22 20:00 Temperature 97.6 F Pulse Rate 115 H 98 104 H Respiratory Rate 93 H Blood Pressure 125/66 Pulse Oximetry 93 Oxygen Delivery Room Air 07/13/22 20:00 07/13/22 23:43 07/13/22 22:00 Temperature 97.8 F Pulse Rate 110 H 98 105 H Respiratory Rate 20 Blood Pressure 122/73 Pulse Oximetry 96 Oxygen Delivery 07/14/22 00:00 07/14/22 00:00 07/14/22 02:27 Temperature 98.0 F Pulse Rate 90 98 Respiratory Rate 20 Blood Pressure 107/66 Pulse Oximetry 94 Oxygen Delivery Room Air 07/14/22 02:00 07/14/22 04:00 07/14/22 04:00 Temperature Pulse Rate 101 H 80 Respiratory Rate Blood Pressure Pulse Oximetry Oxygen Delivery Room Air 07/14/22 06:00 07/14/22 07:59 07/14/22 08:00 Temperature 97.6 F Pulse Rate 80 87 Respiratory Rate 16 Blood Pressure 112/64 Pulse Oximetry 93 97 Oxygen Delivery Room Air 07/14/22 08:00 07/14/22 08:00 07/14/22 10:00 Temperature Pulse Rate 104 H 104 H 104 H Respiratory Rate 16 Blood Pressure Pulse Oximetry 97 Oxygen Delivery Room Air 07/14/22 12:00 07/14/22 12:00 07/14/22 12:00 Temperature 97.9 F Pulse Rate 95 96 Respiratory Rate 16 Blood Pressure 131/84 Pulse Oximetry 100 Oxygen Delivery Room Air 07/14/22 14:00 Temperature Pulse Rate 93 Respiratory Rate Blood Pressure Pulse Oximetry Oxygen Delivery Intake/Output Intake/Output: Intake & Output 07/11/22 07/12/22 07/13/22 07/14/22 23:59 23:59 23:59 23:59 Intake Total 1050 4050 1880 Output Total 100 1100 1150 Balance 950 2950 730 Meds/Results Medications: Active Medications Generic Name Dose Route Start Last Admin Trade Name Freq PRN Reason Stop Dose Admin Acetaminophen 650 mg 07/12/22 15:56
--- NOTE | 2022-07-14 16:10 | WPDUROPN2 ---
Progress Note: A&P Assessment and Plan (1) Hydronephrosis of left kidney: Code(s): N13.30 - Unspecified hydronephrosis Status: Acute Assessment and Plan: Discussed results of scan with Dr. Dunlap and he recommends repeating the Renal Lasix scan in 3 months. No further evaluation needed, or intervention. Subjective Subjective Date/Time Seen: 07/14/22 16:10 Left UPJ obstruction noted on CT scan initially with an elevated creatinine. A renal lasix scan was done yesterday which does show a high grade obstruction, but symmetric kidney function. Her creatinine is stable and chronically elevated without flank pain. This appears to be a chronic obstruction. Review of Systems Cardiovascular: Cardiovascular: Denies chest pain Gastrointestinal: Gastrointestinal: Denies abdominal pain, Denies nausea and Denies vomiting Exam Const: General: cooperative Resp: Effort & Inspection: normal respiratory effort Cardio: Rate: regular rate : General: No no CVA tenderness Objective Data Vital Signs Vital Signs: Vital Signs - 24 hr 07/13/22 18:00 07/13/22 19:41 07/13/22 20:00 Temperature 97.6 F Pulse Rate 106 H 98 104 H Respiratory Rate 93 H Blood Pressure 125/66 Pulse Oximetry 93 Oxygen Delivery Room Air 07/13/22 20:00 07/13/22 23:43 07/13/22 22:00 Temperature 97.8 F Pulse Rate 110 H 98 105 H Respiratory Rate 20 Blood Pressure 122/73 Pulse Oximetry 96 Oxygen Delivery 07/14/22 00:00 07/14/22 00:00 07/14/22 02:27 Temperature 98.0 F Pulse Rate 90 98 Respiratory Rate 20 Blood Pressure 107/66 Pulse Oximetry 94 Oxygen Delivery Room Air 07/14/22 02:00 07/14/22 04:00 07/14/22 04:00 Temperature Pulse Rate 101 H 80 Respiratory Rate Blood Pressure Pulse Oximetry Oxygen Delivery Room Air 07/14/22 06:00 07/14/22 07:59 07/14/22 08:00 Temperature 97.6 F Pulse Rate 80 87 Respiratory Rate 16 Blood Pressure 112/64 Pulse Oximetry 93 97 Oxygen Delivery Room Air 07/14/22 08:00 07/14/22 08:00 07/14/22 10:00 Temperature Pulse Rate 104 H 104 H 104 H Respiratory Rate 16 Blood Pressure Pulse Oximetry 97 Oxygen Delivery Room Air 07/14/22 12:00 07/14/22 12:00 07/14/22 12:00 Temperature 97.9 F Pulse Rate 95 96 Respiratory Rate 16 Blood Pressure 131/84 Pulse Oximetry 100 Oxygen Delivery Room Air 07/14/22 14:00 Temperature Pulse Rate 93 Respiratory Rate Blood Pressure Pulse Oximetry Oxygen Delivery Intake/Output Intake/Output: Intake & Output 07/11/22 07/12/22 07/13/22 07/14/22 23:59 23:59 23:59 23:59 Intake Total 1050 4050 1880 Output Total 100 1100 1150 Balance 950 2950 730 Meds/Results Medications: Active Medications Generic Name Dose Route Start Last Admin Trade Name Freq PRN Reason Stop Dose Admin Acetaminophen 650 mg 07/12/22 15:56 07/13/22 22:21 Acetaminophen 325 Mg Tablet PO 650 mg Q4H PRN Administration Mild Pain (1-3) or Fever Albuterol 2 puff 07/12/22 22:25 Albuterol Sulfate (*Sp) Aerosol 1 Puff INHALATION Q6-8H PRN shortness of breath or wheezing Alprazolam 0.5 mg 07/12/22 22:25 07/13/22 02:24 Alprazolam (*Crx) 0.5 Mg Tablet PO 0.5 mg TID PRN Administration anxiety Dextrose 12.5 gm 07/12/22 22:31 Dextrose 50% 25 Gm/50 Ml Syringe IV PUSH PRN PRN Hypoglycemia Protocol Duloxetine HCl 60 mg 07/12/22 22:30 07/13/22 20:58 Duloxetine Hcl 60 Mg Capsule.Dr PO 60 mg HS PEPPER Administration Glucagon 1 mg 07/12/22 22:31 Glucagon For Inj 1 Mg Vial IM PRN PRN Hypoglycemia Protocol Glucose 15 gm 07/12/22 22:31 Glucose Oral Gel 15 Gm Of Glucse In 37.5 Gm Tube PO PRN PRN Hypoglycemia Protocol Sodium Chloride 1,000 mls @ 125 mls/hr 07/12/22 16:00 07/14/22 12:10 Normal Saline Iv IV CONT 125 mls/hr .Q8H PEPPER Administration Ceftriax
[2022-07-14 16:42] LABS: Glucose Point of Care 259 mg/dl (65-105)
--- NOTE | 2022-07-14 18:50 | PM.IMPN ---
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 General surgery and gynecology consulted. -Per gynecology:?Discussed with her that this condition will need to be referred to a urogynecologist/colorectal surgeon which the referral can take place outpatient once her medical conditions are stabilized. My office will send the referral. -Per GenSurg: No indication for any urgent surgical intervention. Agree with Urology consultation.? Patient wishes to avoid surgery if at all possible and would prefer to monitor this for now. Discussed that we would not consider surgical intervention until she is medically optimized without any other acute issues, and this could be reserved for if she becomes more symptomatic. -BCx NGTD. UCx growing GBStrept and EColi -Patient is currently on Rocephin which is appropriate coverage. -WBC 13.5 on admission but normal now. -Follow. (2) Acute UTI: Code(s): N39.0 - Urinary tract infection, site not specified Status: Acute Assessment and Plan: As above. UA noted. UCx positive. Continue Rocephin (3) DM2 (diabetes mellitus, type 2): Code(s): E11.9 - Type 2 diabetes mellitus without complications Status: Acute Assessment and Plan: A1c 13.7. The patient's blood glucose was reviewed on 07/14 The patient stated she was on Farxiga but it made her feel ill so she stopped taking it. Glucose remains poorly controlled related to poor glycemic control at home. Continue AccuCheks covering with sliding scale. Hypoglycemia protocol available as needed. Advance Lantus and continue meal time insulin. (4) Hydronephrosis of left kidney: Code(s): N13.30 - Unspecified hydronephrosis Status: Acute Assessment and Plan: CT scan also showed left UPJ obstruction with mild left hydronephrosis. Urology has been consulted and appreciate their input. NM Lasix renal scan showing symmetric uptake but severly delayed contrast clearance from the left consistent with left obstruction. Renal function remaining stable. She states this is a chronic issue discovered by Dr Hardy. (5) CKD stage G3b/A3, GFR 30-44 and albumin creatinine ratio >300 mg/g: Code(s): N18.32 - Chronic kidney disease, stage 3b Status: Chronic Assessment and Plan: Baseline Cr 1.5-2.1. Cr on admission at 1.4. [place] that she is at her baseline. Continue to monitor Stop IV fluids. (6) Fibromyalgia: Code(s): M79.7 - Fibromyalgia Status: Acute Assessment and Plan: Continue with tramadol Continue with duloxetine Continue trazodone (7) Essential (primary) hypertension: Code(s): I10 - Essential (primary) hypertension Status: Acute Assessment and Plan: Patient's blood pressure was reviewed on 07/14 Blood pressure remains well controlled. Will continue current medications. (8) Anxiety disorder: Code(s): F41.9 - Anxiety disorder, unspecified Status: Acute Assessment and Plan: Mood stable. Continue with alprazolam Plan Hyponatremia - sodium level of 124 on admission. Improved with IV hydration. Likely hypovolemia related. Stop IV fluids DVT Prophylaxis - SCDs Code status - DNR Subjective Date/time seen: 07/14/22 18:50 Interval history: 81yo female with CKD, HTN and DM who presented to the ED due to having stool type discharge from vagina for 2 weeks.?? Assuming care. Chart reviewed. Feels well. No CP or SOB. No abd pain. Eating better today. Exam Narrative: AF 98.6 128/74 96 18 99% ra Gen - NARD Chest - CTA bilaterally, nml RR CV - RRR S1/S2. Tele showing no signifincat dyrhythmias Abd - Soft, NT/ND, Positive BS Ext - Nonpitting pedal
[2022-07-14 20:16] LABS: Glucose Point of Care 296 mg/dl (65-105)
[2022-07-14] MEDS: traZODone HCL 50 MG TABLET PO (20:58)
[2022-07-14] MEDS: DULoxetine HCL 60 MG CAPSULE.DR PO (20:58)
[2022-07-14] MEDS: ACETAMINOPHEN 325 MG TABLET 650 MG PO (20:59)
[2022-07-14] MEDS: ALPRAZolam (*CRX) 0.5 MG TABLET PO (23:23)
[2022-07-15 04:33] LABS: Hematocrit 39.5 % (37.0-47.0); Hemoglobin 12.2 g/dL (12.0-15.0); Mean Corpuscular HGB Conc 30.9 g/dl (32-36); Mean Corpuscular Hemoglobin 27.9 pg (26-34); Mean Corpuscular Volume 90.4 fl (80-100); Mean Platelet Volume 10.5 fl (7.4-10.4); Platelet Count Result 326 k/mm3 (150-375); Red Blood Count 4.37 M/mm3 (4.2-5.4); Red Cell Distribution Width 16.2 % (11.5-14.5); White Blood Count 7.7 K/mm3 (4.5-10.0)
[2022-07-15 04:46] LABS: Albumin Level 2.8 g/dL (3.5-5.1); Anion Gap 2 mmol/L (8-16); Blood Urea Nitrogen 22 mg/dL (7-17); Carbon Dioxide 27 mmol/L (22-30); Chloride 106 mmol/L (98-107); Estimated CRCL calculation 30 ml/min; Estimated Glomerular Filt Rate 39; Glucose 286 mg/dL (65-110); Potassium 4.1 mmol/L (3.4-5.0); Sodium 135 mmol/L (137-145)
[2022-07-15 07:58] LABS: Glucose Point of Care 282 mg/dl (65-105)
[2022-07-15 08:00] VITALS: BP 147/85; PULSE 87; RESP 16; TEMP 36.1; O2SAT 97
[2022-07-15] MEDS: INSULIN ASPART (*BKC) 100 UNITS/ML SUB-Q ×2 (08:22→11:48)
[2022-07-15] MEDS: INSULIN ASPART (*BKC) 100 UNITS/ML 7 UNITS SUB-Q ×2 (08:22→11:47)
[2022-07-15] MEDS: VALSARTAN 160 MG TABLET PO (08:23)
[2022-07-15] MEDS: INSULIN GLARGINE (*BKC) 100 UNITS/ML 25 UNITS SUB-Q (08:23)
[2022-07-15 11:39] LABS: Glucose Point of Care 308 mg/dl (65-105)
--- NOTE | 2022-07-15 12:06 | PM.DS ---
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 intestinal-genital tract fistulae Status: Acute (2) Acute UTI: Code(s): N39.0 - Urinary tract infection, site not specified Status: Acute (3) DM2 (diabetes mellitus, type 2): Code(s): E11.9 - Type 2 diabetes mellitus without complications Status: Acute (4) Hydronephrosis of left kidney: Code(s): N13.30 - Unspecified hydronephrosis Status: Acute (5) CKD stage G3b/A3, GFR 30-44 and albumin creatinine ratio >300 mg/g: Code(s): N18.32 - Chronic kidney disease, stage 3b Status: Chronic (6) Fibromyalgia: Code(s): M79.7 - Fibromyalgia Status: Acute (7) Essential (primary) hypertension: Code(s): I10 - Essential (primary) hypertension Status: Acute Assessment and Plan: Patient's blood pressure was reviewed on 07/14 Blood pressure remains well controlled. Will continue current medications. (8) Anxiety disorder: Code(s): F41.9 - Anxiety disorder, unspecified Status: Acute DS: Summary Hospital Course Reason for hospitalization: 81yo female with CKD, HTN and DM who presented to the ED due to having stool type discharge from vagina for 2 weeks.?Please see H&P for details. Hospital Course: Patient was having stool type discharge from vagina for 2 weeks.??CT scan showing stool filled colovaginal fistula. General surgery and gynecology consulted. Per gynecology:?Discussed with her that this condition will need to be referred to a urogynecologist/colorectal surgeon which the referral can take place outpatient once her medical conditions are stabilized. My office will send the referral. Per GenSurg: No indication for any urgent surgical intervention. Agree with Urology consultation.? Patient wishes to avoid surgery if at all possible and would prefer to monitor this for now. Discussed that we would not consider surgical intervention until she is medically optimized without any other acute issues, and this could be reserved for if she becomes more symptomatic. BCx NGTD. UCx growing GBStrept and EColi. She was treated with Rocephin. WBC 13.5 on admission but normal now. A1c 13.7. The patient stated she was on Farxiga but it made her feel ill so she stopped taking it. The patient's blood glucose was monitored with AccuCheks covering with sliding scale.? Hypoglycemia protocol was available as needed.? Glucose remained poorly controlled related to poor glycemic control at home.?She was started on Lantus and meal time insulin. Metformin added as discharge. Plan for outpatient diabetic education. CT scan also showed left UPJ obstruction with mild left hydronephrosis. Urology was consulted and appreciate their input. NM Lasix renal scan showing symmetric uptake but severely delayed contrast clearance from the left consistent with left obstruction. Renal function remained stable. Baseline Cr 1.5-2.1. Cr on admission at 1.4. [place] that she is at her baseline. Spoke with nephrology who recommended having the patient follow-up with them in a few weeks but no plans for intervention at this time. Hyponatremia noted with sodium level of 124 on admission.? Improved with IV hydration. Likely hypovolemia related. She overall did well and was able to be discharged home on 07/15/22. Discharge instructions discussed at length; family in the room. Status at Discharge Cognitive/behavioral status at discharge: Stable Time Spent with Patient Time attestation: Total time spent providing and/or coordinating discharge services: 36 minutes Time spent: Greater than 30 minutes Exam Narrative: AF 97.0 147/85 87 16 97% ra Gen - NARD Chest - CTA bilaterally, nml RR CV - RRR S1/S2 Abd - Soft, NT/ND, Positive BS Ext - Nonpitting pedal edema Psych - Nml
== END 2022-07-15 14:00 | disposition home or self-care (01) | DRG 394 ==
LOC: ANHED 11:21 → ANHIMU 16:51
PROVIDERS: Internal Medicine; Nurse Practitioner; Admitting Provider Chiropractor; Emergency Provider Emergency Medicine; PCP Internal Medicine; Referring Provider Internal Medicine Nephrology; Visit Provider Internal Medicine
DX: N82.4 Other female intestinal-genital tract fistulae (principal); N13.1 Hydronephrosis with ureteral stricture, not elsewhere classified; N39.0 Urinary tract infection, site not specified; B96.20 Unspecified Escherichia coli [E. coli] as the cause of diseases classified elsewhere; B95.1 Streptococcus, group B, as the cause of diseases classified elsewhere; E78.2 Mixed hyperlipidemia; E11.22 Type 2 diabetes mellitus with diabetic chronic kidney disease; E11.65 Type 2 diabetes mellitus with hyperglycemia; F41.9 Anxiety disorder, unspecified; G89.29 Other chronic pain; I12.9 Hypertensive chronic kidney disease with stage 1 through stage 4 chronic kidney disease, or unspecified chronic kidney disease; M54.9 Dorsalgia, unspecified; M79.7 Fibromyalgia; M51.36 Other intervertebral disc degeneration, lumbar region; N18.32 Chronic kidney disease, stage 3b; Z90.49 Acquired absence of other specified parts of digestive tract; Z90.710 Acquired absence of both cervix and uterus; Z79.84 Long term (current) use of oral hypoglycemic drugs; Z66 Do not resuscitate
CPT/HCPCS: 36415; 74177; 78708; 80053; 80069; 81001; 82948; 83036; 83605; 83735; 84443; 85025; 85027; 85610; 85730; 87040; 87077; 87086; 87147; 87186; 96361; 96365; 96375; 99285; A9270; A9562; G0378; J0696; J1815; J1940; J7030; Q9967

== ENCOUNTER 2022-07-20 09:39 | Outpatient (RCR) | payer MEDICARE, SELFPAY | END 2022-10-04 09:09 | disposition home or self-care (01) | LOC: ANHDMC 09:39 | PROVIDERS: PCP Nurse Practitioner Family; Visit Provider Nurse Practitioner Family | DX: E11.65 Type 2 diabetes mellitus with hyperglycemia (principal); E11.22 Type 2 diabetes mellitus with diabetic chronic kidney disease; N18.30 Chronic kidney disease, stage 3 unspecified; Z71.89 Other specified counseling | CPT/HCPCS: G0108 ==

== ENCOUNTER 2023-01-17 09:38 | Outpatient (CLI) | payer MEDICARE, SELFPAY ==
--- NOTE | ~2023-01-17 | XR_ITS ---
XR abdomen/kub 1V 01/17/2023 09:53 Indication: Diarrhea. Procedure: KUB Comparison: No prior studies for comparison. Findings: There are air-fluid levels in the small bowel and colon. There are extensive surgical soria es of the abdomen. No abnormal calcifications. Moderate lumbar spondylosis with dextroscoliosis. No a cute osseous abnormality. Impression: 1: Nonspecific air-fluid levels of the small bowel and colon which may relate to ileus or enterocolit is Reviewed, dictated and finalized at location A. Impression: 1: Nonspecific air-fluid levels of the small bowel and colon which may relate t o ileus or enterocolitis
[2023-01-17 20:36] LABS: Appearance Urine Clear (Clear); Bacteria Urine Rare /hpf; Bilirubin Urine Negative (Negative); Blood Urine Negative (Negative); Color Urine Yellow (Yellow); Glucose Urine UA Negative (Negative); Ketones Urine Negative (Negative); Leukocyte Esterase Ur Negative LEU/UL (NEGATIVE); Nitrate Urine Negative (Negative); Non Pathogenic Casts 0-2; Protein Urine 1+ mg/dL (Negative); RBC Urine 0-2 /hpf (0-2); Specific Grav Ur 1.016 (1.001-1.035); Squamous Epithelial Cell Urine Few /hpf (Few); Urobilinogen Urine 0.2 mg/dL (<2.0); WBC Urine 0-5 /hpf (0-3)
[2023-01-17 20:39] LABS: Add Urine Microscopic? YES
[2023-01-17 20:49] LABS: Alanine Aminotransferase 17 U/L (6-35); Albumin Level 4.3 g/dL (3.5-5.1); Alkaline Phosphatase 67 U/L (38-126); Anion Gap 8 mmol/L (8-16); Aspartate Amino Transferase 48 U/L (14-36); Bilirubin,Total 0.6 mg/dL (0.2-1.3); Blood Urea Nitrogen 43 mg/dL (7-17); Calcium 9.8 mg/dL (8.4-10.2); Carbon Dioxide 25 mmol/L (22-30); Chloride 104 mmol/L (98-107); Estimated Glomerular Filt Rate 33; Glucose 128 mg/dL (65-110); Potassium 4.4 mmol/L (3.4-5.0); Sodium 137 mmol/L (137-145)
== END 2023-01-17 09:39 | disposition home or self-care (01) ==
LOC: ANHBWCLAB 09:40
PROVIDERS: PCP Family Medicine; Visit Provider Nurse Practitioner Adult Health
DX: R19.7 Diarrhea, unspecified (principal); Z87.440 Personal history of urinary (tract) infections
CPT/HCPCS: 36415; 74018; 80053; 81001

== ENCOUNTER 2023-05-18 13:50 | Outpatient (CLI) | payer MEDICARE, SELFPAY ==
--- NOTE | 2023-05-18 13:54 | ECHO_ITS ---
Patient Info Name: Kathryn Rosario Age: 82 years : 1940 Gender: Female Ht: 61 in Wt: 179 lbs BSA: 1.91 m2 HR: 64 bpm BP: 120 / 70 mmHg Technical Quality: Good Exam Date: 05/18/2023 2:03 PM Exam Location: Echo Lab Patient Status: Outpatient Admit Date: 05/18/2023 Staff Ordering Physician: Fernandez Goodrich MD Electronic Pagination System Operator: Attending Provider: Fernandez Goodrich MD Referring Physician: Kp CARLTON; Exam Type: CA echo doppler color flow Study Info Indications I10 - Essential (primary) hypertension Complete two-dimensional, color flow and Doppler transthoracic echocardiogram is performed. Summary 1. Complete two-dimensional, color flow and Doppler transthoracic echocardiogram is performed. 2. Left ventricular chamber dimension is normal. 3. Left ventricular systolic function is normal, estimated at 65-70%. 4. There is mild concentric increased left ventricular wall thickness. 5. The left ventricular diastolic function is grade I diastolic dysfunction. 6. E/e' 11 is mildly elevated. 7. Left atrial chamber dimension is mildly enlarged. 8. There is moderate aortic valve sclerosis. 9. There is moderate aortic valve stenosis with a peak velocity of 257 cm/s, mean gradient of 13 mmHg, and aortic valve area of 1.4 cm2. 10. The mitral valve has moderately calcified annulus. 11. There is mild mitral valve regurgitation. 12. There is trace tricuspid valve regurgitation. 13. No pulmonary hypertension, estimated pulmonary arterial systolic pressure is 33 mmHg. Left Ventricle E/e' 11 is mildly elevated. Left ventricular chamber dimension is normal. Left ventricular systolic function is normal, estimated at 65-70%. There is mild concentric increased left ventricular wall thickness. The left ventricular diastolic function is grade I diastolic dysfunction. Right Ventricle Right ventricular systolic function is normal and with normal TAPSE 2.9 cm. Right ventricular chamber dimension is normal. Left Atria Left atrial chamber dimension is mildly enlarged. Right Atria Right atrial chamber dimension is normal. Aortic Valve The aortic valve is trileaflet. There is moderate aortic valve sclerosis. There is moderate aortic valve stenosis with a peak velocity of 257 cm/s, mean gradient of 13 mmHg, and aortic valve area of 1.4 cm2. There is no aortic valve regurgitation. Pulmonic Valve There is no pulmonic regurgitation. Mitral Valve The mitral valve has moderately calcified annulus. There is no mitral valve stenosis. There is mild mitral valve regurgitation. Tricuspid Valve There is trace tricuspid valve regurgitation. No pulmonary hypertension, estimated pulmonary arterial systolic pressure is 33 mmHg. Pericardium/Pleural There is no pericardial effusion. Inferior Vena Cava Normal inferior vena cava with >50% collapse upon inspiration consistent with normal right atrial pressure, 5 mmHg. Aorta The aortic root size at the sinus of Valsalva is normal. Left Ventricular Outflow Tract Name Value Normal LVOT 2D LVOT Diameter 2.0 cm LVOT Doppler LVOT Peak Gradient 5 mmHg LVOT Mean Gradient 3 mmHg LVOT VTI 27 cm
== END 2023-05-18 13:51 | disposition home or self-care (01) ==
LOC: ANHCARD 13:50
PROVIDERS: PCP Family Medicine; Visit Provider Family Medicine
DX: I10 Essential (primary) hypertension (principal); I34.0 Nonrheumatic mitral (valve) insufficiency; I35.1 Nonrheumatic aortic (valve) insufficiency
CPT/HCPCS: 93306

== ENCOUNTER 2023-07-25 09:17 | Outpatient (CLI) | payer MEDICARE, SELFPAY ==
[2023-07-25 19:31] LABS: Hematocrit 49.8 % (37.0-47.0); Hemoglobin 14.4 g/dL (12.0-15.0); Mean Corpuscular HGB Conc 28.9 g/dl (32-36); Mean Corpuscular Hemoglobin 27.6 pg (26-34); Mean Corpuscular Volume 95.6 fl (80-100); Mean Platelet Volume 11.4 fl (7.4-10.4); Platelet Count Result 300 k/mm3 (150-375); Red Blood Count 5.21 M/mm3 (4.2-5.4); Red Cell Distribution Width 15.5 % (11.5-14.5); White Blood Count 11.3 K/mm3 (4.5-10.0)
[2023-07-25 19:37] LABS: Creatinine Urine 111.7 mg/dL
[2023-07-25 19:40] LABS: MALB Creatinine Ratio 119.1 mg/g (0-30)
[2023-07-25 20:10] LABS: Alanine Aminotransferase 15 U/L (6-35); Albumin Level 4.7 g/dL (3.5-5.1); Alkaline Phosphatase 63 U/L (38-126); Anion Gap 9 mmol/L (4-12); Aspartate Amino Transferase 75 U/L (14-36); Bilirubin,Total 0.8 mg/dL (0.2-1.3); Blood Urea Nitrogen 42 mg/dL (7-17); Calcium 9.6 mg/dL (8.4-10.2); Carbon Dioxide 27 mmol/L (22-30); Chloride 102 mmol/L (98-107); Estimated Glomerular Filt Rate 31; Glucose 127 mg/dL (65-110); Potassium 4.3 mmol/L (3.4-5.0); Sodium 138 mmol/L (137-145)
[2023-07-25 21:23] LABS: Hemoglobin A1C 6.9 % (<5.7)
== END 2023-07-25 09:18 | disposition home or self-care (01) ==
PROVIDERS: PCP Family Medicine; Visit Provider Family Medicine
DX: E11.9 Type 2 diabetes mellitus without complications (principal)
CPT/HCPCS: 36415; 80053; 82043; 83036; 85027

== ENCOUNTER 2024-05-18 12:20 | Outpatient (CLI) | payer MEDICARE, SELFPAY | END 2024-05-18 12:21 | disposition home or self-care (01) | PROVIDERS: PCP Family Medicine; Visit Provider Internal Medicine Cardiovascular Disease | DX: I35.0 Nonrheumatic aortic (valve) stenosis (principal); I35.8 Other nonrheumatic aortic valve disorders; I34.81 Nonrheumatic mitral (valve) annulus calcification; I51.89 Other ill-defined heart diseases | CPT/HCPCS: 93306 ==